=== PATIENT | female | born 1965 | race Caucasian/White ===

== ENCOUNTER 2016-05-28 07:30 | Inpatient (IN) | payer MEDICAID, OTHER ==
--- NOTE | 2016-05-25 23:08 | PREOPHP ---
DATE OF ADMISSION: 05/28/2016 HISTORY OF PRESENT ILLNESS: This is a 50-year-old female, 4, para 3, abortions 1. This pat ient has consulted me due to pelvic pain that has been persistent for a long time, since her last C- section, with the possibility of surgical adhesions. She had 1 section, 2 vaginal deliveri es, and since the section, she has been experiencing pain mainly on the right side. Her ul trasound shows fibroids and thickened endometrium, with the possibility of endometriosis as well. S he has history of anemia, history of dyspareunia that has been severe, and history of no period sinc e 2013. section was in 1993. She has no other complaints. REVIEW OF SYSTEMS: Negative for cardiovascular, negative for lung disease, negative for endocrine d isease, neurological, orthopedic disease, hematological disease. ALLERGIES: SHE DOES NOT HAVE ANY ALLERGIES. SOCIAL HISTORY: She does not have a history of drugs or alcohol. FAMILY HISTORY: Diabetes, hypertension, and strokes. MEDICATIONS: At the present time, she does not take any medication. PHYSICAL EXAMINATION: VITAL SIGNS: Stable. Blood pressure 100/60, pulse is 80, she is afebrile. She weighs 138. She is 5 feet 5 inches. HEAD AND NECK: Normal. BREASTS: Soft, nontender, no masses. CHEST: Clear. HEART: Normal sinus rhythm. BACK: Normal. ABDOMEN: With suprapubic pain. GENITALIA: With vaginal atrophy and painful mobilization. The cervix is stenotic. Uterus retrover chris, flexed, with old fibroids. The movement of the uterus also creates pain, possibly from the adh esions. DIAGNOSES: 1. Intractable pelvic pain. 2. Chronic fibroid uterus. 3. Endometrial hyperplasia by ultrasound. 4. Cervical stenosis. PLAN: She is undergoing a total abdominal hysterectomy, possible BSO. The patient is in menopause, but still would like to keep her ovaries if they are in good shape. We understand that and we advi sed the same thing if the ovaries in good shape and have no problems of endometriosis or adhesions, she will keep the ovaries; otherwise, they will be removed. The patient has been advised of the po ssible risks and possible complications of the procedure, with her alternatives and options. Claudia page information was provided. She had no more questions and agreed to go ahead with the procedure, wi th full understanding and no more questions. Dictated By: TANI SANTIAGO/BRAD Conf#: [id number] DID#: [id number]
[~2016-05-28] VITALS: Ht 154.9 cm; Wt 62.8 kg
[~2016-05-28 07:30] MED LIST: BACTDS PO; CEPH-443 PO
--- NOTE | 2016-09-08 23:06 | PREOPHP ---
DATE OF ADMISSION: 09/09/2016 HISTORY OF PRESENT ILLNESS: This is a 50-year-old female, 4, para 3, abortions 1. This pat ient has come in due to intractable pelvic pain, enlarged fibroid uterus. She had been scheduled fo r surgery before that was canceled by the senior financial accountant. At this time, he is okaying her surgery aft er cardiology evaluation and clearance. This patient has been persistently having intractable pelvi c pain. She had 1 with possibility of surgical adhesions. She had 2 vaginal deliveries. She states that since she had a , she has been experiencing pain mainly on the right side. Ultrasound shows fibroids and thickened uterus, thickened endometrium with the possibility of endo metriosis. She also has a history of anemia, dyspareunia that has been severe, and she has no perio ds since 2013. Her last was in 1993. She has no other complaints. REVIEW OF SYSTEMS: Negative for cardiovascular. Negative for lung disease. Negative for endocrine disease, neurological, orthopedic, hematological disease. ALLERGIES: SHE HAS NO ALLERGIES. SOCIAL HISTORY: She does not have a history of drugs or alcohol. FAMILY HISTORY: Diabetes, hypertension, and strokes. MEDICATIONS: At the present time, she is not taking anything. PHYSICAL EXAMINATION: VITAL SIGNS: Stable. Blood pressure 100/60, pulse is 80. She is afebrile. She weighs 138. She i s 5 feet 5 inches. HEAD AND NECK: Normal. BREASTS: Soft, nontender. No masses. CHEST: Clear. HEART: Normal sinus rhythm. LUNGS: Clear. ABDOMEN: Soft, nontender. No masses with suprapubic pain. GENITALIA: With vaginal atrophy and painful mobilization. The cervix is stenotic. The uterus is r etroverted, flexed with fibroids. The movement of the uterus also creates lots of pain to both side s with the possibility of adhesions. DIAGNOSES: 1. Chronic intractable pelvic pain. 2. Fibroid uterus. 3. Endometrial hyperplasia. 4. Cervical stenosis. PLAN: She is undergoing a total abdominal hysterectomy, possible bilateral salpingectomy, possible bilateral oophorectomy pending the findings on the surgery. The patient is in menopause, but she wo uld still keep her ovaries if they are in good shape. We understand and we advised the same thing i f the ovaries in good shape, I have no problems of endometriosis or adhesions, she will keep her ova annette. Otherwise, we will remove them. The patient has been advised of the possible risks and possi ble complications of the procedure with her alternatives and options. Written information was provi ded. She had no more questions and agreed to go ahead with the procedure with full understanding an d no more questions. PROCEDURE TO BE DONE: AL, possible BSO. Dictated By: TANI SANTIAGO/BRAD Conf#: [id number] DID#: [id number]
[2016-09-09] VITALS (20 sets, daily range): BP systolic 105–124; BP diastolic 55–66; PULSE 51–81; RESP 16–44; Ht 154.9 cm; Wt 62.8 kg
[2016-09-09] MEDS ORDERED: CEFAZOLIN 2 GM/50 ML (PMX) 50 ML IVPB SCH (06:30)
[2016-09-09] MEDS ORDERED: LIDOCAINE 2% (SDV) 5 ML INJ ONE (07:00)
[2016-09-09 07:22] LABS: ADD SCAN DIFF NO
[2016-09-09 07:27] LABS: BASOPHILS % 0.5 % (0.0-2.0); EOSINOPHILS # 0.1 10^3/ul (0.0-0.5); EOSINOPHILS % 1.4 % (0.0-7.0); HEMATOCRIT 44.3 % (37.0-47.0); HEMOGLOBIN 14.6 g/dl (12.0-16.0); LYMPHOCYTES # 1.7 10^3/ul (0.8-2.9); LYMPHOCYTES % 40.6 % (15.0-51.0); MEAN PLATELET VOLUME 11.4 fl (7.4-10.4); MONOCYTE # 0.4 10^3/ul (0.3-0.9); MONOCYTES % 8.2 % (0.0-11.0); NEUTROPHIL # 2.1 10^3/ul (1.6-7.5); NEUTROPHILS % 49.1 % (39.0-77.0); PLATELET COUNT 255 10^3/UL (140-415); RED BLOOD COUNT 5.21 10^6/ul (4.20-5.40); RED CELL DISTRIBUTION WIDTH 13.8 % (11.5-14.5); WHITE BLOOD COUNT 4.3 10^3/ul (4.8-10.8)
[2016-09-09] MEDS ORDERED: FENTAnyl 50 MCG/ML VIAL ONE (07:30)
[2016-09-09] MEDS ORDERED: NEOSTIGMINE 3 MG/3 ML SYRINGE ONE (07:30)
[2016-09-09] MEDS ORDERED: GLYCOPYRROLATE 0.4 MG INJ ONE (07:30)
[2016-09-09] MEDS ORDERED: MIDAZOLAM 1 MG/ML 2 ML INJ ONE (07:30)
[2016-09-09] MEDS ORDERED: ROCURONIUM 50 MG INJ ONE (07:30)
[2016-09-09] MEDS ORDERED: PROPOFOL 20 ML ONE (07:30)
[2016-09-09] MEDS ORDERED: CEFAZOLIN 1 GM INJ ONE (07:30)
[2016-09-09] MEDS ORDERED: morphine SULFATE/PF (10 MG/10 ML) INJ ONE (07:31)
[2016-09-09] MEDS ORDERED: DEXAMETHASONE 4 MG/ML 1 ML INJ ONE (07:31)
[2016-09-09] MEDS ORDERED: ONDANSETRON 4 MG INJ ONE (07:31)
[2016-09-09 07:41] LABS: INR 0.91; PROTIME 12.3 Sec (12.2-14.2)
[2016-09-09 07:43] LABS: PARTIAL THROMBOPLASTIN TIME 30.2 Sec (25.0-35.0); POTASSIUM 3.5 mmol/L (3.5-5.1)
[2016-09-09 07:48] LABS: CALCIUM 9.7 mg/dl (8.4-10.2); CREATININE 0.63 mg/dl (0.44-1.00)
[2016-09-09] MEDS ORDERED: THROMBIN 5000 UNIT VIAL TOP ONE (09:10)
[2016-09-09] MEDS ORDERED: HEMOSTATIC MATRIX SYG ZFS ONE (09:10)
[2016-09-09] MEDS ORDERED: THROMBIN 5000 UNIT VIAL ONE (09:18)
[2016-09-09] MEDS ORDERED: TRIMETHOBENZAMIDE 100 MG/ML VIAL IM PRN ×2 (09:30)
[2016-09-09] MEDS ORDERED: morphine (1 MG/ML) 10ML SYRINGE IV PRN (09:30)
[2016-09-09] MEDS ORDERED: NALOXONE (0.4 MG/ML) INJ IV PRN (09:30)
[2016-09-09] MEDS ORDERED: MEPERIDINE 25 MG INJ IV PRN (09:30)
[2016-09-09] MEDS ORDERED: NALBUPHINE HCL (10 MG/1 ML) INJ IV PRN (09:30)
[2016-09-09] MEDS ORDERED: ONDANSETRON 4 MG INJ IV PRN ×2 (09:30)
[2016-09-09] MEDS ORDERED: DIPHENHYDRAMINE 50 MG INJ IV PRN ×2 (09:30)
[2016-09-09] MEDS ORDERED: LABETALOL HCL 20MG INJ IV PRN (09:30)
[2016-09-09] MEDS ORDERED: morphine 2 MG INJ IV PRN (09:30)
[2016-09-09] MEDS ORDERED: MIDAZOLAM 1 MG/ML 2 ML INJ IV PRN (09:30)
[2016-09-09] MEDS ORDERED: morphine 4 MG/ML VIAL IV PRN (09:30)
[2016-09-09] MEDS ORDERED: hydrALAzine 20 MG INJ IV PRN (09:30)
[2016-09-09] MEDS ORDERED: EPHEDrine SULFATE 50 MG/5 ML SYG IV PRN (09:30)
[2016-09-09] MEDS ORDERED: HYDROmorphONE (0.2 MG/ML) 10ML SYG IV PRN ×3 (09:30)
[2016-09-09] MEDS ORDERED: FENTAnyl 50 MCG/ML VIAL IV PRN ×3 (09:30)
[2016-09-09] MEDS ORDERED: KETOROLAC 30 MG INJ IV PRN (09:30)
--- NOTE | 2016-09-09 09:58 | OPR ---
Date/Time of Note Date/Time of Note DATE: 09/09/16 TIME: 09:55 Operative Report Procedure Date: Sep 09, 2016 Preoperative Diagnosis CHRONIC INTRACTABLE PELVIC PAIN FIBROID UTERUS ENDOMETRIAL HYPERPLASIA CERVICAL STENOSIS PELVIC ADHESIONS Postoperative Diagnosis SAME Operation Performed AL BS LYSIS OF ADHESIONS Surgeon: TANI MANLEY MD Push Connector Assembler: SHYLA JOHNSON M.D. Anesthesia: general Anesthesiologist: Edmond Irvin M.D. Estimated Blood Loss: 10 - 50 ml's Specimens UTERUS AND TUBES Complications: None Pt Condition Post Procedure: stable TANI MANLEY MD Sep 09, 2016 09:58
[2016-09-09] MEDS ORDERED: DIPHENHYDRAMINE 50 MG CAP PO PRN (10:00)
[2016-09-09] MEDS ORDERED: BISACODYL (EC) 5 MG TAB PO PRN (10:00)
[2016-09-09] MEDS ORDERED: ZOLPIDEM 5 MG TAB PO PRN (10:00)
[2016-09-09] MEDS ORDERED: HYDROCODONE/APAP (5/325) TAB PO PRN ×2 (10:00)
[2016-09-09] MEDS: KETOROLAC 30 MG INJ IV SCH ×3 (10:25→21:57)
[2016-09-09] MEDS: LACTATED RINGER'S 1,000 ML IV SCH ×2 (11:06→17:20)
[2016-09-09] MEDS: METOCLOPRAMIDE 10 MG TAB PO SCH ×3 (11:16→23:53)
--- NOTE | 2016-09-09 11:44 | OPR ---
DATE OF OPERATION: 09/09/2016 PROCEDURES: 1. Total abdominal hysterectomy. 2. Bilateral salpingectomy. 3. Lysis of adhesions. PREOPERATIVE DIAGNOSES: 1. Chronic intractable pelvic pain. 2. Fibroid uterus. 3. Endometrial hyperplasia. 4. Cervical stenosis. 5. Pelvic adhesions. POSTOPERATIVE DIAGNOSES: 1. Chronic intractable pelvic pain. 2. Fibroid uterus. 3. Endometrial hyperplasia. 4. Cervical stenosis. 5. Pelvic adhesions. SURGEON: Tani Tyler MD BLUEPRINT MACHINE OPERATOR: Dr. Julio ANESTHESIOLOGIST: Dr. Irvin COMPLICATIONS: None. PROCEDURE: The patient was given general anesthesia, placed in the supine position. The abdomen wa s prepped and draped and a De La Rosa catheter was placed in the bladder. An elliptical incision was mad e, and the previous old scar was removed. The abdomen was opened in layers without difficulties. A bdominal cavity was reached. The exploration of the pelvic area revealed that there were omental ad hesions and also the bladder was adherent to the cervix due to previous section. The uteru s was with multiple small intramural fibroids. There were no adhesions of the adnexa. There were o nly adhesions of omentum. The self-retaining retractor was placed and some laps were placed in to h old the bowel. The uterus was held with a Shree clamp and the bipolar instrument, LigaSure, was use d to 3 green bars to cauterize the ovarian ligament and tube first. Then, the cardinal ligaments. The round ligament and the bladder flap was made lysing the adhesion of the bladder to the cervix ca refully with Metzenbaum until the bladder was pushed down. The skeletonization of both uterine ara annette was done and the cautery of both uterine arteries was done with the LigaSure instrument as well . The cardinal ligaments and uterosacral ligaments were clamped with Enrrique clamps, straight, and c ut, and sutures with #1 Vicryl hemostatic suture, looped suture was used to cauterize the ligaments. These sutures were held. The posterior cul-de-sac was entered with a scissor, and the uterus was removed with the cervix. The corners of the vagina were held, and they were sutured with #1 Vicryl, and the vagina was closed with interrupted suture with 1 Vicryl as well. Hemostasis was good. On the bladder there was some oozing that bipolar current was used to cauterize. The cavity was left u nder water to see if there was any bleeding. There was no active bleeding. The ovaries were to be kept because of her age and willingness to keep her ovaries. The tubes were removed by using the Li gaSure to 3 bars bipolar current and removed with the ____ on both sides. Both ovaries were covered with Interceed to prevent adhesions. The ureters were tracked down. There was no active bleeding. The patient tolerated the procedure well and the abdominal cavity had been cleaned. The cul-de-sa c was also dry, and Surgiflo was placed underneath the bladder near the vaginal cuff for prevention of bleeding. The procedure was finished by removing all the instruments. The patient tolerated the procedure well and left the OR awake and stable. Sponge counts, instrument counts, needle counts w ere correct. Intravenous antibiotics were given for prophylaxis. Blood loss was minimal, and the u rine was clear at of the procedure. Dictated By: TANI SANTIAGO/BRAD Conf#: [id number] DID#: [id number]
[2016-09-09] MEDS: CEFAZOLIN 1 GM/50 ML (PMX) 50 ML IVPB SCH ×2 (13:53→21:59)
[2016-09-10 00:21] VITALS: BP 99/54; RESP 19
[2016-09-10] MEDS: LACTATED RINGER'S 1,000 ML IV SCH ×4 (02:18→18:49)
[2016-09-10] MEDS: KETOROLAC 30 MG INJ IV SCH ×4 (04:10→21:06)
[2016-09-10 05:01] LABS: BASOPHILS % 0.1 % (0.0-2.0); HEMATOCRIT 36.6 % (37.0-47.0); HEMOGLOBIN 12.5 g/dl (12.0-16.0); LYMPHOCYTES # 1.5 10^3/ul (0.8-2.9); LYMPHOCYTES % 13.8 % (15.0-51.0); MEAN CORPUSCULAR HEMOGLOBIN 28.9 pg (29.0-33.0); MEAN CORPUSCULAR HGB CONC 34.2 g/dl (32.0-37.0); MEAN CORPUSCULAR VOLUME 84.7 fl (82.0-101.0); MEAN PLATELET VOLUME 11.3 fl (7.4-10.4); MONOCYTE # 0.7 10^3/ul (0.3-0.9); MONOCYTES % 6.4 % (0.0-11.0); NEUTROPHIL # 8.6 10^3/ul (1.6-7.5); NEUTROPHILS % 79.4 % (39.0-77.0); PLATELET COUNT 239 10^3/UL (140-415); RED BLOOD COUNT 4.32 10^6/ul (4.20-5.40); WHITE BLOOD COUNT 10.9 10^3/ul (4.8-10.8)
[2016-09-10 05:02] LABS: ADD SCAN DIFF NO
[2016-09-10 05:19] LABS: CREATININE 0.58 mg/dl (0.44-1.00); POTASSIUM 4.1 mmol/L (3.5-5.1)
[2016-09-10] MEDS: CEFAZOLIN 1 GM/50 ML (PMX) 50 ML IVPB SCH (05:32)
[2016-09-10] MEDS: METOCLOPRAMIDE 10 MG TAB PO SCH ×3 (05:32→17:12)
[2016-09-10 08:58] VITALS: BP 105/55; RESP 19
--- NOTE | 2016-09-10 12:44 | PN ---
Date/Time of Note Date/Time of Note DATE: 09/10/16 TIME: 12:42 Assessment/Plan Lines/Catheters IV Catheter Type (from Nrsg): Peripheral IV De La Rosa in Place (from Nrsg): Yes Subjective 24 Hr Interval Summary day 1 after surgery feels good, afebrile not in pain ambulating, passing gases and tolerating diet incision dry Constitutional: BM, ambulates, flatus, improved, no complaints, urine output Feeding: advancing diet Pain Control: well controlled Detailed Summary Eyes: no complaints ENT: no complaints Respiratory: no complaints Cardiovascular: no complaints Gastrointestinal: no complaints Genitourinary: no complaints Musculoskeletal: no complaints Skin: no complaints Neurologic: no complaints Endocrine: no complaints Lymphatic: no complaints Psychological: nl mood/affect, no complaints Immunologic: no complaints Exam/Review of Systems Vital Signs Vitals Vital Signs Date Time Temp Pulse Resp B/P Pulse Ox O2 Delivery O2 Flow Rate FiO2 09/10/16 08:58 98.3 70 19 105/55 96 09/09/16 14:00 Room Air 09/09/16 09:55 4.0 Intake and Output 09/09/16 09/09/16 09/10/16 15:00 23:00 07:00 Intake Total 50 ml 1285 ml 870 ml Output Total 500 ml 650 ml 1000 ml Balance -450 ml 635 ml -130 ml Exam Constitutional: alert, oriented, well developed Psych: nl mood/affect, no complaints Head: atraumatic, normocephalic Eyes: EOMI, nl conjunctiva, nl lids, nl sclera ENMT: mucosa pink and moist, nl external ears & nose, nl lips & teeth, nl nasal mucosa & septum Neck: non-tender, supple Respiratory: clear to auscultation, normal air movement Cardiovascular: nl pulses, regular rate and rhythm Gastrointestinal: nl liver, spleen, non-tender, soft Musculoskeletal: nl extremities to inspection, nl gait and stance Extremities: normal pulses Neurological: MILKER MACHINE II-XII intact, nl mental status, nl speech, nl strength Skin: nl turgor, rash or lesions Lymph: nl lymph nodes Results Result Diagram: 09/10/16 0423 09/10/16 0423 TANI MANLEY MD Sep 10, 2016 12:44
[2016-09-10] MEDS ORDERED: BISACODYL (EC) 5 MG TAB PO ONE (13:00)
[2016-09-10 19:53] VITALS: BP 116/61; RESP 19
[2016-09-10] MEDS: ONDANSETRON 4 MG INJ IV PRN (21:05)
[2016-09-11] MEDS: METOCLOPRAMIDE 10 MG TAB PO SCH ×4 (00:08→17:19)
[2016-09-11] MEDS: HYDROmorphONE 1 MG/ML SYG IV PRN ×2 (02:31→12:06)
[2016-09-11] MEDS: LACTATED RINGER'S 1,000 ML IV SCH ×3 (02:48→20:35)
[2016-09-11] MEDS: KETOROLAC 30 MG INJ IV SCH ×4 (04:27→21:00)
[2016-09-11 05:08] LABS: ADD SCAN DIFF NO
[2016-09-11 05:19] LABS: BASOPHILS % 0.1 % (0.0-2.0); EOSINOPHILS % 0.2 % (0.0-7.0); HEMATOCRIT 35.1 % (37.0-47.0); HEMOGLOBIN 11.4 g/dl (12.0-16.0); LYMPHOCYTES # 1.6 10^3/ul (0.8-2.9); LYMPHOCYTES % 18.1 % (15.0-51.0); MEAN CORPUSCULAR HEMOGLOBIN 27.9 pg (29.0-33.0); MEAN CORPUSCULAR HGB CONC 32.5 g/dl (32.0-37.0); MEAN PLATELET VOLUME 11.5 fl (7.4-10.4); MONOCYTE # 0.6 10^3/ul (0.3-0.9); MONOCYTES % 6.4 % (0.0-11.0); NEUTROPHIL # 6.8 10^3/ul (1.6-7.5); NEUTROPHILS % 74.8 % (39.0-77.0); PLATELET COUNT 190 10^3/UL (140-415); RED BLOOD COUNT 4.08 10^6/ul (4.20-5.40)
[2016-09-11 07:21] VITALS: BP 109/61; RESP 19
--- NOTE | 2016-09-11 12:58 | PN ---
Date/Time of Note Date/Time of Note DATE: 09/11/16 TIME: 12:56 Assessment/Plan Lines/Catheters IV Catheter Type (from [facility]): Peripheral IV De La Rosa in Place (from [facility]): No Subjective 24 Hr Interval Summary AFEBRILE DAY 2 AFTER SURGERY INCISION HEALING GOOD PASSING GASES AMBULATING Constitutional: BM, ambulates, flatus, improved, no complaints, urine output Feeding: advancing diet Detailed Summary Eyes: no complaints ENT: no complaints Respiratory: no complaints Cardiovascular: no complaints Gastrointestinal: no complaints Genitourinary: no complaints Musculoskeletal: no complaints Skin: no complaints Neurologic: no complaints Endocrine: no complaints Lymphatic: no complaints Psychological: nl mood/affect, no complaints Immunologic: no complaints Exam/Review of Systems Vital Signs Vitals Vital Signs Date Time Temp Pulse Resp B/P Pulse Ox O2 Delivery O2 Flow Rate FiO2 09/11/16 07:21 98.0 75 19 109/61 98 09/09/16 14:00 Room Air 09/09/16 09:55 4.0 Intake and Output 09/10/16 09/10/16 09/11/16 15:00 23:00 07:00 Intake Total 375 ml 1540 ml 1860 ml Output Total 1000 ml 500 ml Balance 375 ml 540 ml 1360 ml Exam Constitutional: alert, oriented, well developed Psych: nl mood/affect, no complaints Head: atraumatic, normocephalic Eyes: EOMI, nl conjunctiva, nl lids, nl sclera ENMT: mucosa pink and moist, nl external ears & nose, nl lips & teeth, nl nasal mucosa & septum Neck: non-tender, supple Respiratory: clear to auscultation, normal air movement Cardiovascular: nl pulses, regular rate and rhythm Gastrointestinal: nl liver, spleen, non-tender, soft Musculoskeletal: nl extremities to inspection, nl gait and stance Extremities: normal pulses Neurological: TIP BANDING MACHINE OPERATOR II-XII intact, nl mental status, nl speech, nl strength Skin: nl turgor, rash or lesions Lymph: nl lymph nodes Results Result Diagram: 09/11/16 0445 09/10/16 0423 TANI MANLEY MD Sep 11, 2016 12:58
[2016-09-11] MEDS ORDERED: BISACODYL (EC) 5 MG TAB PO ONE (13:30)
[2016-09-11] MEDS ORDERED: ACETAMINOPHEN/CODEINE #3 TAB PO PRN ×2 (14:00)
[2016-09-11] MEDS: ONDANSETRON 4 MG INJ IV PRN (16:29)
[2016-09-11 20:06] VITALS: BP 123/69; RESP 20
[2016-09-11] MEDS: METOCLOPRAMIDE 10 MG INJ IV SCH ×2 (20:35→23:19)
[2016-09-11] MEDS ORDERED: METOCLOPRAMIDE 10 MG TAB PO SCH (21:00)
--- NOTE | 2016-09-11 21:12 | RADRPT ---
PROCEDURE: CT abdomen and pelvis without IV contrast. CLINICAL INDICATION: Abdominal pain TECHNIQUE: CT scan of the abdomen and pelvis without contrast was performed on the [employer] volumetric [address] scanner. The patient was scanned without intravenous contrast. Coronal and sagittal refo rmatted images were obtained from the axial source images. The CTDI vol is 10.9 mGy and the DLP is 5 91.15 mGy-cm. COMPARISON: None. FINDINGS: CT abdomen: Small bilateral pleural effusions are seen with bilateral lower lobe consolidation. The heart size is not enlarged and is without pericardial thickening or effusion. The liver is normal in size and density and is without focal mass or intrahepatic biliary dilatation . The spleen is normal in size and homogeneous in density. The gastric lumen is distended and flui d-filled. The pancreas as visualized is normal. The gallbladder and biliary tree are unremarkable a nd there is no evidence for common bile duct dilatation. The adrenal glands are symmetric and dong l. The kidneys are symmetrically unremarkable as well. No renal calculus or obstructive uropathy o r mass lesion is seen. The aorta is of normal in caliber. There is no retroperitoneal lymphadenopathy. The sarah hepatis region is clear. The proximal and mid small bowel is dilated. The small bowel is diffusely fluid-f illed. The large bowel is diffusely fluid-filled. No inflammatory changes in the periappendiceal re gion is seen. A small volume of free fluid is seen. Pneumoperitoneum is identified. CT pelvis: The uterus is not identified. Increased soft tissue density in the expected location of the uterus is seen with fluid. Increased soft tissue density in the presacral space is seen. In addition, post surgical changes in the anterior abdominal wall in the pelvis is seen characterized by increased sof t tissue density and soft tissue air. The pelvic sidewalls and inguinal regions are clear. No pelvi c mass or adenopathy is seen. Nondependent air in the urinary bladder is seen. The remainder of the urinary bladder is within normal limits. The surrounding osseous structures are unremarkable. No osteolytic or osteoblastic lesion is detect ed. IMPRESSION: 1. Status post hysterectomy with acute postoperative changes as described above. 2. Diffusely fluid-filled small and large bowel with dilatation of the proximal and mid small bowel . The findings may represent an ileus. Continued follow-up is suggested. 3. Distended and fluid-filled gastric lumen. 4. Small bilateral pleural effusions with bilateral lower lobe consolidation. RPTAT: HPNM Earl Light, Physician Date Time Electronically viewed and signed by Earl Light, Physician on 09/11/2016 21:12 /
[2016-09-11 22:05] LABS: ALBUMIN 3.4 g/dl (3.3-4.9); ALBUMIN/GLOBULIN RATIO 1.25; BILIRUBIN,INDIRECT 0.4 mg/dl (0-1.1); BILIRUBIN,TOTAL 0.4 mg/dl (0.2-1.3); CALCIUM 8.9 mg/dl (8.4-10.2); CREATININE 0.6 mg/dl (0.44-1.00); POTASSIUM 3.2 mmol/L (3.5-5.1); TOTAL PROTEIN 6.1 g/dl (6.1-8.1)
[2016-09-11] MEDS ORDERED: POTASSIUM CHLORIDE 20 MEQ in SOD CHLORIDE 0.9% 100 ML IVPB ONE (22:30)
[2016-09-11] MEDS: SOD CHLORIDE 0.45% IV SCH (23:41)
[2016-09-11] MEDS: POTASSIUM CHLORIDE IV SCH (23:41)
[2016-09-12] MEDS: KETOROLAC 30 MG INJ IV SCH ×2 (03:40→22:13)
[2016-09-12 05:09] LABS: ADD SCAN DIFF NO
[2016-09-12] MEDS: METOCLOPRAMIDE 10 MG INJ IV SCH ×3 (05:13→17:14)
[2016-09-12] MEDS: PANTOPRAZOLE 40 MG INJ IV SCH (05:13)
[2016-09-12 05:18] LABS: BASOPHILS % 0.3 % (0.0-2.0); EOSINOPHILS % 0.5 % (0.0-7.0); HEMOGLOBIN 12.1 g/dl (12.0-16.0); LYMPHOCYTES # 1.1 10^3/ul (0.8-2.9); MEAN CORPUSCULAR HEMOGLOBIN 28.2 pg (29.0-33.0); MEAN CORPUSCULAR HGB CONC 33.6 g/dl (32.0-37.0); MEAN CORPUSCULAR VOLUME 83.9 fl (82.0-101.0); MEAN PLATELET VOLUME 11.2 fl (7.4-10.4); MONOCYTE # 0.3 10^3/ul (0.3-0.9); MONOCYTES % 4.4 % (0.0-11.0); NEUTROPHILS % 79.3 % (39.0-77.0); PLATELET COUNT 198 10^3/UL (140-415); RED BLOOD COUNT 4.29 10^6/ul (4.20-5.40); RED CELL DISTRIBUTION WIDTH 13.8 % (11.5-14.5); WHITE BLOOD COUNT 7.5 10^3/ul (4.8-10.8)
[2016-09-12 05:26] LABS: POTASSIUM 3.3 mmol/L (3.5-5.1)
[2016-09-12 05:29] LABS: CREATININE 0.58 mg/dl (0.44-1.00)
[2016-09-12 05:30] LABS: CALCIUM 8.3 mg/dl (8.4-10.2)
[2016-09-12] MEDS ORDERED: PANTOPRAZOLE (EC) 40 MG TAB PO SCH (06:00)
[2016-09-12 07:58] VITALS: BP 111/59; RESP 18
[2016-09-12] MEDS: POTASSIUM CHLORIDE IV SCH ×2 (08:30→15:11)
[2016-09-12] MEDS: SOD CHLORIDE 0.45% IV SCH ×2 (08:30→15:11)
--- NOTE | 2016-09-12 09:38 | CONS ---
DATE OF ADMISSION: 09/09/2016 DATE OF CONSULTATION: 09/12/2016 REQUESTING TYPE OF CONSULTATION: Cyndi Tyler MD REASON FOR CONSULTATION: Postoperative ileus. HISTORY OF PRESENT ILLNESS: The patient is a 51-year-old female who is 3 days status post uneventfu l TAHBSO for uterine fibroids. The patient postoperatively developed nausea, vomiting and slight ab dominal distention. A CT scan of the abdomen suggested an ileus, although the patient has had some small bowel movements both yesterday and today. Last night a NG tube was placed. Today a surgical consultation was requested. She has had no fevers or chills. PAST MEDICAL HISTORY: No previous abdominal surgeries, other than the above. REVIEW OF SYSTEMS: HEAD, EARS, EYES, NOSE AND THROAT: Unremarkable. PULMONARY: No history of shortness of breath, asthma or pneumonia. CARDIAC: No history of chest pain, [place] or arrhythmia. ABDOMEN: As in the HPI. EXTREMITIES: Unremarkable. OUTPATIENT MEDICATIONS: None. ALLERGIES: NONE. PHYSICAL EXAMINATION: GENERAL: The patient is an alert, oriented, Mohawk-speaking 50-year-old female, in no acute distre ss. HEAD, EARS, EYES, NOSE, THROAT: Within normal limits. There is a nasogastric tube in place. LUNGS: Clear. HEART: Regular rhythm. ABDOMEN: Soft and only minimally distended. Bowel sounds are hypoactive. There is a clean, nicely healing Pfannenstiel scar. EXTREMITIES: Unremarkable. LABORATORY DATA: The patient's hematocrit is 36 with a white count of 7,500, with only a slight lef t shift, with 79 polys. BUN, glucose and electrolytes are unremarkable. CT findings show diffusely fluid-filled small and large bowel, with dilatation of the proximal and mid small bowel, compatible with ileus. IMPRESSION: Postoperative ileus. The patient appears to be quite comfortable. Her abdominal exami nation is benign and her NG output has not been exceedingly high. PLAN: We will proceed and order a small bowel follow-through. Resolution is expected. Further rec ommendations will be forthcoming, based on the patient's further workup and clinical course. I will follow with you. Dictated By: BIA ARNOLD/BRAD Conf#: [id number] DID#: [id number]
--- NOTE | 2016-09-12 11:52 | PN ---
Date/Time of Note Date/Time of Note DATE: 09/12/16 TIME: 11:48 Assessment/Plan Lines/Catheters IV Catheter Type (from Nrsg): Peripheral IV De La Rosa in Place (from Nrsg): No Subjective [address] Nicole consultation appreciated.. PATIENT IS FEELING BETTER AND ABDOMEN IS SOFT NON TENDER. NO REBOUND TENDERNESS HAD WATERY BM. WITH POSTOP ILEUS., AFEBRILE CT WITH LUNG DENSITY AT THE BASE. ENCOURAGED INCENTIVE SPIROMETRY. WE WILL REPEAT X-RAY TOMORROW. BLOOD RESULTS NEAR NORMAL. Constitutional: BM, ambulates, improved Pain Control: well controlled Exam/Review of Systems Vital Signs Vitals Vital Signs Date Time Temp Pulse Resp B/P Pulse Ox O2 Delivery O2 Flow Rate FiO2 09/12/16 07:58 97.9 91 18 111/59 96 09/09/16 14:00 Room Air 09/09/16 09:55 4.0 Intake and Output 09/11/16 09/11/16 09/12/16 15:00 23:00 07:00 Intake Total 350 ml 995 ml 710 ml Output Total 500 ml 1050 ml Balance 350 ml 495 ml -340 ml Exam Constitutional: alert, oriented, well developed Psych: nl mood/affect, no complaints Head: atraumatic, normocephalic Eyes: EOMI, nl conjunctiva, nl lids, nl sclera ENMT: mucosa pink and moist, nl external ears & nose, nl lips & teeth, nl nasal mucosa & septum Neck: non-tender, supple Respiratory: clear to auscultation, normal air movement Cardiovascular: nl pulses, regular rate and rhythm Gastrointestinal: nl liver, spleen, non-tender, soft Musculoskeletal: nl extremities to inspection, nl gait and stance Extremities: normal pulses Neurological: DIRECTOR OF CURRICULUM AND INSTRUCTION II-XII intact, nl mental status, nl speech, nl strength Skin: nl turgor, rash or lesions Lymph: nl lymph nodes Results Result Diagram: 09/12/1643909/12/16439 TANI MANLEY MD Sep 12, 2016 11:52
[2016-09-12] MEDS ORDERED: DIATR MEGLU/DIATRIZOATE SODIUM 120 ML BTL ONE (12:46)
[2016-09-12 20:06] VITALS: BP 126/68; RESP 20
--- NOTE | 2016-09-12 21:23 | RADRPT ---
PROCEDURE: XR small bowel follow-through series. CLINICAL INDICATION: Postoperative ileus or small bowel obstruction TECHNIQUE: Supine and AP skein dyer images are obtained at approximately 1314 hours. Subsequently imag es are obtained at the 0 minutes, 15 minutes, 30 minutes, 45 minutes, 60 minutes, 2 hours and 5 hour s after administration of contrast media through the nasogastric tube. COMPARISON: CT abdomen and pelvis without contrast 09/11/2016 FINDINGS: Envelope Folding Machine Adjuster image: The nasogastric tube is curled within the gastric fundus. There are distended gas deny led loops of the jejunum with some gas seen in the distal colon. 0-minute: The immediate image demonstrates contrast media only within the gastric fundus with persi stent gas-filled loops of proximal small bowel. 15 minutes: Contrast media is within the remainder of the stomach which is normal in caliber as wel l as within the duodenum and jejunum which are distended having a diameter of approximately 4.4 cm. 30 minutes: Contrast persist within the distended jejunum, the column does not significantly advanc ed since the 15-minute image. 45 minutes: Persistent contrast within a distended loops of small bowel, the jejunum, which are dil ated, the contrast column not moving significantly since the 15-minute image. 60-minute: Some advancement of contrast media into distended loops of jejunum is noted but no contr ast is seen within the ilium or distal small bowel. 2 hours: Contrast media has reached the ilium and its distal segment, the ilium normal in caliber, the distended loops of jejunum slightly decreased in diameter now measuring 3.5 cm. 5 hours: The image demonstrates contrast media having reached the transverse colon and splenic flex ure. There is persistent distension of the jejunal loops, the maximum dimension 4.9 cm RPTAT:HJJR IMPRESSION: 1. Contrast media administered through the nasogastric tube reaches the splenic flexure 5 hours aft er administration, the pattern most consistent with an adynamic ileus rather than complete small bow el obstruction. 2. Persistent dilated loops of jejunum throughout the examination. Physician Ari Date Time Electronically viewed and signed by Physician Ari on 09/12/2016 21:22 JR/
[2016-09-13] MEDS: METOCLOPRAMIDE 10 MG INJ IV SCH ×5 (00:09→23:39)
[2016-09-13] MEDS: POTASSIUM CHLORIDE IV SCH (00:09)
[2016-09-13] MEDS: SOD CHLORIDE 0.45% IV SCH (00:09)
[2016-09-13] MEDS: KETOROLAC 30 MG INJ IV SCH ×3 (05:43→18:18)
[2016-09-13] MEDS: PANTOPRAZOLE 40 MG INJ IV SCH (05:43)
[2016-09-13 08:19] VITALS: BP 118/62; RESP 18
--- NOTE | 2016-09-13 11:15 | PN ---
Date/Time of Note Date/Time of Note DATE: 09/13/16 TIME: 11:11 Assessment/Plan Lines/Catheters IV Catheter Type (from Nrs): Peripheral IV De La Rosa in Place (from Nrs): No Subjective 24 Hr Interval Summary DAY 4 POSTOP AFEBRILE, FEELS GOOD, NOT IN PAIN, BUT NOW WITH DIARRHEA. NO NAUSEA.. NG TUBE DRAINING WELL NOT ABUNDANT AMOUNT OF FLUID ABDOMINAL SERIES DIAGNOSED ILEUS ABDOMEN WITH BS BUT STILL FAINT. INCISION DRY AND HEALING GOOD ENCOURAGED AMBULATION AND INCENTIVE SPIROMETRY Constitutional: improved Feeding: NPO Detailed Summary Eyes: no complaints ENT: no complaints Respiratory: no complaints Cardiovascular: no complaints Gastrointestinal: no complaints Genitourinary: no complaints Musculoskeletal: no complaints Skin: no complaints Neurologic: no complaints Endocrine: no complaints Lymphatic: no complaints Psychological: nl mood/affect, no complaints Immunologic: no complaints Exam/Review of Systems Vital Signs Vitals Vital Signs Date Time Temp Pulse Resp B/P Pulse Ox O2 Delivery O2 Flow Rate FiO2 09/13/16 08:19 98.4 83 18 118/62 95 09/09/16 14:00 Room Air 09/09/16 09:55 4.0 Intake and Output 09/12/16 09/12/16 09/13/16 15:00 23:00 07:00 Intake Total 1500 ml 600 ml Output Total 300 ml 50 ml Balance 1200 ml 550 ml Exam Constitutional: alert, oriented, well developed Psych: nl mood/affect, no complaints Head: atraumatic, normocephalic Eyes: EOMI, nl conjunctiva, nl lids, nl sclera ENMT: mucosa pink and moist, nl external ears & nose, nl lips & teeth, nl nasal mucosa & septum Neck: non-tender, supple Respiratory: clear to auscultation, normal air movement Cardiovascular: nl pulses, regular rate and rhythm Gastrointestinal: nl liver, spleen, non-tender, soft Musculoskeletal: nl extremities to inspection, nl gait and stance Extremities: normal pulses Neurological: REGIONAL FACILITIES SPECIALIST II-XII intact, nl mental status, nl speech, nl strength Skin: nl turgor, rash or lesions Lymph: nl lymph nodes Results Result Diagram: 09/12/16 0440 09/12/16 [id number] TANI MANLEY MD Sep 13, 2016 11:15
[2016-09-13] MEDS: POTASSIUM CHLORIDE 40 MEQ in SOD CHLORIDE 0.45% 980 ML IV SCH ×2 (13:53→23:38)
--- NOTE | 2016-09-13 16:15 | PN ---
DATE: 09/13/2016 This is a surgery progress note. Patient is feeling markedly improved. Her NG output has been mini mal. Small bowel follow through did not show obstruction and is compatible with ileus. The patient since has passed gas. OBJECTIVE: Abdominal examination is benign. PLAN: Discontinue NG tube and start clear liquids. The patient's diet may be advanced as tolerated . There are no further surgical recommendations. We will see again p.r.n. at your request. Dictated By: BIA ARNOLD/BRAD Conf#: [id number] DID#: [id number]
[2016-09-13 20:31] VITALS: BP 119/77; RESP 20
[2016-09-14] MEDS: METOCLOPRAMIDE 10 MG INJ IV SCH ×3 (06:38→18:44)
[2016-09-14] MEDS: PANTOPRAZOLE 40 MG INJ IV SCH (06:38)
[2016-09-14 06:54] LABS: POTASSIUM 4.2 mmol/L (3.5-5.1)
--- NOTE | 2016-09-14 06:57 | PN ---
Date/Time of Note Date/Time of Note DATE: 09/14/16 TIME: 06:54 Assessment/Plan Lines/Catheters IV Catheter Type (from Nrsg): Peripheral IV De La Rosa in Place (from Nrsg): No Subjective [address] JOHNSON CONSULTATION APPRECIATED. PATIENT IS PASSING GASES NOW. WE WILL TRY PROGRESSIVE DIET NOW AND SEE IF SHE IS ABLE TO BE SENT HOME TOMORROW SHE FEELS GOOD WITH NO INCISIONAL PAIN AFEBRILE AND STABLE NOW Constitutional: BM, ambulates, flatus, improved Feeding: advancing diet Pain Control: well controlled Detailed Summary Eyes: no complaints ENT: no complaints Respiratory: no complaints Cardiovascular: no complaints Gastrointestinal: no complaints Genitourinary: no complaints Musculoskeletal: no complaints Skin: no complaints Neurologic: no complaints Endocrine: no complaints Lymphatic: no complaints Psychological: nl mood/affect, no complaints Immunologic: no complaints Exam/Review of Systems Vital Signs Vitals Vital Signs Date Time Temp Pulse Resp B/P Pulse Ox O2 Delivery O2 Flow Rate FiO2 09/13/16 20:31 97.8 55 20 119/77 98 Intake and Output 09/13/16 09/13/16 09/14/16 15:00 23:00 07:00 Intake Total 1320 ml Balance 1320 ml Exam Constitutional: alert, oriented, well developed Psych: nl mood/affect, no complaints Head: atraumatic, normocephalic Eyes: EOMI, nl conjunctiva, nl lids, nl sclera ENMT: mucosa pink and moist, nl external ears & nose, nl lips & teeth, nl nasal mucosa & septum Neck: non-tender, supple Respiratory: clear to auscultation, normal air movement Cardiovascular: nl pulses, regular rate and rhythm Gastrointestinal: nl liver, spleen, non-tender, soft Musculoskeletal: nl extremities to inspection, nl gait and stance Extremities: normal pulses Neurological: SALESPERSON FASHION ACCESSORIES II-XII intact, nl mental status, nl speech, nl strength Skin: nl turgor, rash or lesions Lymph: nl lymph nodes Results Result Diagram: 09/12/16 0440 09/12/16 [id number] TANI MANLEY MD Sep 14, 2016 06:57
[2016-09-14] MEDS ORDERED: SOD CHLORIDE 0.45% IV SCH (06:58)
[2016-09-14] MEDS ORDERED: POTASSIUM CHLORIDE IV SCH (06:58)
[2016-09-14 08:00] VITALS: BP 105/59; RESP 18
[2016-09-14] MEDS: 1/2 NS + KCL 20 MEQ 1,000 ML IV SCH ×2 (10:34→21:31)
[2016-09-14] MEDS ORDERED: VITAMIN A & D 5 GM OINT PACKET TOP ONE (18:33)
[2016-09-14 20:06] VITALS: BP 112/61; RESP 19
[2016-09-15] MEDS: METOCLOPRAMIDE 10 MG INJ IV SCH ×3 (00:56→12:00)
[2016-09-15] MEDS: 1/2 NS + KCL 20 MEQ 1,000 ML IV SCH (06:00)
[2016-09-15] MEDS: PANTOPRAZOLE 40 MG INJ IV SCH (06:29)
[2016-09-15 08:01] VITALS: BP 125/70; RESP 20
--- NOTE | 2016-09-15 13:15 | PD.PPDC ---
[employer] Discharge Instruction Condition Patient Condition: Good Diet Diet: Resume Regular Diet Activity/Restrictions Activity: Normal Activity May Shower Restrictions: No Exercising No Lifting No Driving No Sexual Activity Nothing in the Vagina No [place] No Tampons, douche Wound/Drain Care Instructions Wound/Drain Care Instructions: Remove Steri Strips in 1 week Wash with soap and water Keep clean and dry Follow-up Follow-up with Physician: 2, Week/Weeks Return to clinic for [facility] Instructions: Fever greater than 101 Chills Worsening abdominal pain Excessive Vaginal Bleeding More than 2 pads per hour Unable to tolerate diet Surgical Instructions: Incisional Drainage Incisional Redness TANI MANLEY MD Sep 15, 2016 13:15
--- NOTE | 2016-09-15 15:34 | DS ---
DATE OF ADMISSION: 09/09/2016 DATE OF DISCHARGE: 09/15/2016 ADMITTING DIAGNOSES: 1. Chronic intractable pelvic pain. 2. Fibroid uterus. 3. Endometrial hyperplasia. 4. Cervical stenosis. PROCEDURES DONE: AL and bilateral salpingectomy, and lysis of adhesions. COMPLICATIONS: Postoperative ileus. HISTORY: This is a 51-year-old female, 4, para 3. This patient consulted me due to pelvic pain that has been persistent for a long time with a history of and surgical adhesions, 2 vaginal deliveries, and history of anemia, dyspareunia. This patient had been diagnosed with a fibr oid uterus and endometrial hyperplasia by ultrasound and cervical stenosis and pelvic adhesions. Indu coy underwent a total abdominal hysterectomy and bilateral salpingectomy. Postoperatively, she develo ped an ileus for which Dr. Cash was consulted. An NG tube was placed. She was also with low pota ssium that was being replaced. She was given an NG tube for a couple of days to get her bowel movem ents normal again. She had a bowel series that ruled out bowel obstruction. She regained her motil ity in the bowel again. She was discharged on the 6th postoperative day with instructions of what t o do and not to do and with instructions to see me in the office in a week with ibuprofen and Tyleno l No.3 only if the pain is severe. The patient was instructed against any narcotics and to have a n ormal diet. She is already passing gasses and having a normal bowel movement and voiding well. The incision is clean and dry. She has been afebrile. Her laboratory testing have regained normality with normal hemoglobin, hematocrit, white count, and normal chemistry with normal potassium. The go carmona has been advised of the possible complications at home. She has been made aware of what could happen, to call if she has any problems, fever, dehiscence of the incision, or any other problems. The patient is tolerating diet, is ambulatory, passing gasses, and with bowel movements. She is st able to go home. She is in no pain. She has further been instructed and she will see me in the off ice in a week. She is stable. Dictated By: TANI SANTIAGO/NTS Conf#: [id number] DID#: [id number]
== END 2016-09-15 16:35 | disposition home or self-care (01) | DRG 742 ==
LOC: REC 09-09 05:48 → MS1 09-09 10:55
PROVIDERS: ADMIT Obstetrics & Gynecology; ATTEND Obstetrics & Gynecology
PROC: 0UTC0ZZ Resection of Cervix, Open Approach (ICD-10-PCS; 2016-09-09)
PROC: 0UT70ZZ Resection of Bilateral Fallopian Tubes, Open Approach (ICD-10-PCS; 2016-09-09)
PROC: 0UN90ZZ Release Uterus, Open Approach (ICD-10-PCS; 2016-09-09)
PROC: 0UT90ZZ Resection of Uterus, Open Approach (ICD-10-PCS; principal; 2016-09-09 07:30)
DX: D25.1 Intramural leiomyoma of uterus (principal); K91.89 Other postprocedural complications and disorders of digestive system; K56.7 Ileus, unspecified; D25.2 Subserosal leiomyoma of uterus; N80.0 Endometriosis of uterus; N84.0 Polyp of corpus uteri; N88.8 Other specified noninflammatory disorders of cervix uteri; N88.2 Stricture and stenosis of cervix uteri; E87.6 Hypokalemia; N73.6 Female pelvic peritoneal adhesions (postinfective)
CPT/HCPCS: 74176; 74250; 80048; 80051; 80053; 82565; 84132; 84520; 85025; 85576; 85610; 85730; 86850; 86900; 86901; 86920; 87086; 88302; 88305; C9113; J0690; J1100; J1170; J1885; J2250; J2274; J2405; J2710; J2765; J3010; J3480; J7120

== ENCOUNTER 2018-03-30 10:40 | Day surgery (SDC) | END 2018-03-30 12:13 | disposition home or self-care (01) ==